=== PATIENT | female | born 2000 | race Caucasian/White ===

== ENCOUNTER 2019-11-29 12:51 | Emergency (ER) | payer OTHER ==
[~2019-11-29] VITALS: Ht 157.5 cm; Wt 49.9 kg
[2019-11-29] MEDS ORDERED: PENVK500 PO (13:49)
== END 2019-11-29 13:52 | disposition home or self-care (01) ==
LOC: ER 12:51
DX: J02.0 Streptococcal pharyngitis (principal)
CPT/HCPCS: 87081; 87430; 99283

== ENCOUNTER 2019-12-02 10:05 | Emergency (ER) | payer OTHER ==
[~2019-12-02] VITALS: Ht 157.5 cm; Wt 49.9 kg
[~2019-12-02 10:05] MED LIST: PENVK500 PO
== END 2019-12-02 11:40 | disposition home or self-care (01) ==
LOC: ER 10:05
DX: J02.9 Acute pharyngitis, unspecified (principal)
CPT/HCPCS: 99282; J1100

== ENCOUNTER 2019-12-13 19:14 | Emergency (ER) | payer OTHER ==
[~2019-12-13] VITALS: Ht 157.5 cm; Wt 49.9 kg
[2019-12-13] MEDS ORDERED: Polytrim Eye Dr10 ML LEFTEYE (22:26)
== END 2019-12-13 22:33 | disposition home or self-care (01) ==
LOC: ER 19:14
DX: H10.023 Other mucopurulent conjunctivitis, bilateral (principal)
CPT/HCPCS: 99282

== ENCOUNTER 2022-09-06 14:22 | Emergency (ER) | payer OTHER ==
[~2022-09-06] VITALS: Ht 157.5 cm; Wt 59.0 kg
[~2022-09-06 14:22] MED LIST changes: +Polytrim Eye Dr10 ML LEFTEYE
[2022-09-06 15:14] LABS: Source, Urine Clean Catch
[2022-09-06 15:22] LABS: Appearance, Urine Hazy (Clear); Bilirubin, Urine Neg (Neg); Blood, Urine 5+ (Neg); Glucose Qualitative, Urine Neg (Neg); Ketones, Urine Neg (Neg); Leukocyte Esterase, Urine Neg (Neg); Nitrite, Urine Neg (Neg); Protein, Urine 2+ (Neg); Urobilinogen, Urine NORM (Normal)
[2022-09-06 15:37] LABS: Color, Urine Pale Yellow (P-Yellow)
[2022-09-06 15:38] LABS: Bacteria Many /hpf; Red Blood Cells, Urine TNTC /hpf (0-2); Squamous Epithelial Cells Few /hpf (Few); White Blood Cells, Urine 0-2 /hpf (0-5)
[2022-09-06] MEDS ORDERED: Macrobid 100 M100 MG PO (16:08)
== END 2022-09-06 16:20 | disposition home or self-care (01) ==
LOC: ER 14:22
PROVIDERS: Physician Assistant
DX: N39.0 Urinary tract infection, site not specified (principal)
CPT/HCPCS: 81001; 81025; 87086; A9270

== ENCOUNTER → 2025-08-29 | Outpatient (CLI) | payer OTHER ==
[~2025-08-29] MED LIST changes: +Macrobid 100 M100 MG PO
== END | disposition home or self-care (01) ==
LOC: LAB 18:03 → LAB SHORT 18:03
DX: J02.9 Acute pharyngitis, unspecified (principal)
CPT/HCPCS: 87081